=== PATIENT | male | born 1950 | race Caucasian/White ===

== ENCOUNTER 2023-06-06 09:06 | Outpatient (CLI) | payer MEDICARE ==
[2023-06-06 10:18] LABS: CALCIUM, SERUM 9.7 mg/dL (8.5-10.1); CARBON DIOXIDE 26 mmol/L (21-32); CHLORIDE 104 mmol/L (98-107); CREATININE 1.3 mg/dL (0.6-1.3); GLUCOSE 123 mg/dL (74-106); POTASSIUM 4.3 mmol/L (3.5-5.1); SODIUM SERUM 140 mmol/L (136-145); UREA NITROGEN, BLOOD 13 mg/dL (7-18)
[2023-06-06 10:26] LABS: PARTIAL THROMBOPLASTIN TIME 26.8 SEC (24.3-34.3); PROTHROMBIN TIME 10.5 SECS (9.2-11.1)
[2023-06-06 10:31] LABS: APPEARANCE,URINE SLIGHTLY CLOUDY (CLEAR); BILIRUBIN,URINE NEGATIVE (NEGATIVE); BLOOD, URINE NEGATIVE Ery/uL (NEGATIVE); COLOR,URINE YELLOW (YELLOW); KETONES,URINE NEGATIVE (NEGATIVE); LEUKOCYTE ESTERASE ,URINE NEGATIVE (NEGATIVE); NITRITE, URINE NEGATIVE (NEGATIVE); PROTEIN,URINE NEGATIVE (NEGATIVE); UGLUCOSE NEGATIVE (NEGATIVE); UROBILINOGEN,URINE 0.2 EU/dL (0.2)
[2023-06-06 10:33] LABS: HEMOGLOBIN 13.1 g/dL (13.5-17.5); RED CELL DISTRIBUTION WIDTH 15.2 % (11.5-15.0)
[2023-06-06 10:37] LABS: BASOPHILS # (AUTO) 0.2 K/uL (0.0-0.2); BASOPHILS % (AUTO) 2.7 % (0.0-2.0); EOSINOPHILS # (AUTO) 0.3 K/uL (0.0-0.7); EOSINOPHILS % (AUTO) 4.1 % (0.0-6.0); HEMATOCRIT 38 % (39-51); LYMPHOCYTES % (AUTO) 15.3 % (20.0-44.0); MEAN CORPUSCULAR HEMOGLOBIN 30 PG (26.0-33.0); MEAN CORPUSCULAR HGB CONC 35 g/dl (31.0-36.0); MEAN CORPUSCULAR VOLUME 88 fL (80-96); MONOCYTES # (AUTO) 0.5 K/uL (0.1-1.30); MONOCYTES % (AUTO) 8.7 % (2.0-12.0); NEUTROPHILS # (AUTO) 4.3 K/uL (1.8-8.9); NEUTROPHILS % (AUTO) 69.2 % (43.0-81.0); PLATELET COUNT (AUTO) 202 K/uL (150-450); WHITE BLOOD COUNT (AUTO) 6.2 K/uL (4.3-11.0)
== END 2023-06-06 23:59 | disposition home or self-care (01) ==
LOC: RAD 09:06
PROVIDERS: ATTEND Internal Medicine Pulmonary Disease
DX: Z01.818 Encounter for other preprocedural examination (principal); Z96.611 Presence of right artificial shoulder joint
CPT/HCPCS: 36415; 71045-TC; 80048-TC; 85025-TC; 85610-TC; 85730-TC

== ENCOUNTER 2025-02-03 09:02 | Inpatient (IN) | payer MEDICARE ==
[~2025-02-03] VITALS: Ht 172.7 cm; Wt 74.4 kg
[2025-02-03] MEDS ORDERED: LIDOCAINE 2%-EPI 1:100,000 30 ML VIAL ONE (12:20)
[2025-02-03] MEDS ORDERED: OXYMETAZOLINE HCL NASAL SPRAY 30 ML BOTTLE NS ONE (12:20)
[2025-02-03] MEDS ORDERED: dexaMETHasone SOD PHOSPHATE 2 ML ONE (12:20)
[2025-02-03] MEDS ORDERED: CEFAZOLIN 1 GM ONE ×2 (12:25→12:26)
[2025-02-03] MEDS ORDERED: MIDAZOLAM HCL 2 MG/2ML VIAL ONE (13:00)
[2025-02-03] MEDS ORDERED: FENTANYL PF 100MCG/2ML AMPUL ONE (13:00)
[2025-02-03] MEDS ORDERED: SUCCINYLCHOLINE CHLORIDE 20 MG/ML VIAL ONE (13:01)
[2025-02-03 16:00] VITALS: BP 123/84; TEMP 97.5; O2SAT 94; O2SAT 95
[2025-02-03] MEDS ORDERED: ONDANSETRON HCL/PF 4 MG/2 ML VIAL IVP PRN ×2 (16:30→19:30)
[2025-02-03] MEDS: ACETAMINOPHEN 325 MG TABLET PO PRN (16:42)
[2025-02-03] MEDS: IV NS 0.9% 1,000 ML IV PRN (16:45)
[2025-02-03] MEDS: CEFAZOLIN 2 GM in IV D5W 100 ML IV SCH (18:27)
[2025-02-03] MEDS: HYDROMORPHONE INJ 2 MG/ML DISP.SYRIN IV PRN (18:52)
[2025-02-03] MEDS ORDERED: ACETAMINOPHEN 325 MG TABLET PO PRN (19:30)
[2025-02-03] MEDS ORDERED: Z GUARD REMEDY 4 OZ OINT TP PRN (19:30)
[2025-02-03] MEDS ORDERED: MAGNESIUM HYDROXIDE 30 ML UDC PO PRN (19:30)
[2025-02-03 23:17] VITALS: BP 148/99; TEMP 97.9; O2SAT 93
[2025-02-04] MEDS: MAG HYDROX/AL HYDROX/SIMETH 30 ML UDC PO PRN (10:51)
== END 2025-02-04 11:03 | disposition home or self-care (01) | DRG 497 ==
LOC: DS 09:02 → MED 15:54
PROVIDERS: ADMIT Internal Medicine; ATTEND Dentist Oral and Maxillofacial Surgery
PROC: 0WB30ZZ Excision of Oral Cavity and Throat, Open Approach (ICD-10-PCS; 2025-02-03)
PROC: 0NPW04Z Removal of Internal Fixation Device from Facial Bone, Open Approach (ICD-10-PCS; principal; 2025-02-03 13:00)
DX: T84.69XA Infection and inflammatory reaction due to internal fixation device of other site, initial encounter (principal); M27.2 Inflammatory conditions of jaws; Y83.8 Other surgical procedures as the cause of abnormal reaction of the patient, or of later complication, without mention of misadventure at the time of the procedure; Y92.009 Unspecified place in unspecified non-institutional (private) residence as the place of occurrence of the external cause; Z88.1 Allergy status to other antibiotic agents; Z91.048 Other nonmedicinal substance allergy status; K13.70 Unspecified lesions of oral mucosa
CPT/HCPCS: 82962-TC; A4223; G0378; J0330; J0690; J1100; J1171; J2250; J2405; J2704; J2765; J3010; J3490; J7030; J7060